=== PATIENT | female | born 1955 | race Caucasian/White ===

== ENCOUNTER 2022-06-21 13:08 | Emergency (ER) | payer OTHER, SELFPAY ==
[2022-06-21 13:28] VITALS: BP 140/82; PULSE 88; RESP 15; TEMP 37.3; O2SAT 98; BMI 20.3
--- NOTE | 2022-06-21 14:20 | PC.NURSE ---
pt picked up a towel last night and felt a slight bite and threw the towel down, she then noticed a bat in the towel. she states she cleaned her finger with alcohol and perioxide, she did feel some tingling and burning when applied but can not see any visible wound. her MD and school services officer friend advised her to be checked by ER.
[2022-06-21] MEDS: RABIES VACCINE (RABAVERT) 2.5 UNITS SYRINGE IM (15:49)
[2022-06-21] MEDS: RABIES IMMUNE GLOBULIN 300 UNIT/ML 1mL VIAL 1179 UNIT IM (15:50)
[2022-06-21] MEDS: TET,DIPH,PERTUSS(ACELL),VAC/PF 0.5 ML SYRINGE IM (16:20)
--- NOTE | 2022-06-21 16:31 | ED.ANIMALBIT ---
HPI - Animal Bite <Lei Roa PA-C - Last Filed: 06/27/22 13:41> General Chief Complaint: Animal Bite Stated Complaint: bat bite, last night Time Seen by Provider: 06/21/22 14:51 Source: patient Mode of arrival: Ambulatory History of Present Illness HPI narrative: 67-year-old female with no reported past medical history presents to the ED status post a bat bite sustained yesterday. Patient was reaching into her clothes washer, when she felt a bite on her left middle finger, saw a bat. Patient wrapped the bat in 8 fall and took the bat outside. The bat was not captured. Patient denies fevers, chills, drooling, excessive salivation, trouble swallowing, paralysis, seizures. Related Data Allergies Allergy/AdvReac Type Severity Reaction Status Date / Time Sulfa (Sulfonamide Allergy Verified 06/21/22 13:28 Antibiotics) Review of Systems <Lei Roa PA-C - Last Filed: 06/27/22 13:41> Review of Systems ROS Unobtainable: All systems reviewed & are unremarkable except as noted in HPI and below Constitutional Constitutional: Denies chills, Denies fatigue, Denies fever(s), Denies frequent falls, Denies lethargy and Denies weakness Eyes Eyes: Denies change in vision, Denies eye discharge, Denies irritation and Denies loss of vision ENT Ears, Nose, Mouth, and Throat: Denies change in voice, Denies dizziness, Denies neck pain, Denies sore throat and Denies throat swelling Cardiovascular Cardiovascular: Denies chest pain, Denies irregular heart rhythm, Denies lightheadedness, Denies palpitations, Denies dyspnea, Denies dyspnea on exertion and Denies orthopnea Respiratory Respiratory: Denies cough, Denies dyspnea, Denies dyspnea on exertion and Denies wheezing Gastrointestinal Gastrointestinal: Denies abdominal pain, Denies change in bowel habits, Denies diarrhea, Denies nausea and Denies vomiting Genitourinary Genitourinary: Denies hematuria, Denies flank pain, Denies urinary incontinence and Denies urinary urgency Musculoskeletal Musculoskeletal: Denies back pain, Denies muscle weakness, Denies neck pain, Denies numbness and Denies tingling Integumentary/Breasts Skin/Breast: Denies pruritus, Denies erythema, Denies rash and Denies wounds Comments: Bat bite on left middle finger Neurologic Neurologic: Denies behavioral changes, Denies confusion, Denies dizziness, Denies frequent falls, Denies loss of vision, Denies numbness, Denies tingling and Denies weakness Psychiatric Psychiatric: Denies anxiety, Denies behavioral changes, Denies confusion, Denies depression, Denies homicidal ideation and Denies suicidal ideation Endocrine Endocrine: Denies fatigue, Denies flushing and Denies palpitations Hematologic/Lymphatic Hematologic/Lymphatic: Denies easy bruising Allergic/Immunologic Allergic/Immunologic: Denies urticaria, Denies throat swelling and Denies wheezing Patient History <Lei Roa PA-C - Last Filed: 06/27/22 13:41> Social History Smoking Status: Unknown if ever smoked Smoking Status: Unknown if ever smoked alcohol intake frequency: 0-2 drinks per day Substance Use Type: does not use Exam <Lei Roa PA-C - Last Filed: 06/27/22 13:41> Narrative Exam Narrative: Const General:?cooperative, healthy appearing and comfortable [facility] Head:?normal to inspection Ears:?hearing grossly normal bilaterally Nose:?external nose normal Face and sinus:?normal facial exam and sinuses nontender Mouth:?oral mucosae normal; no drooling, trismus Throat:?posterior oropharynx normal Eyes General:?appearance normal, both eyes and all related structures Neck Neck:?normal visual inspection and no lymphadenopathy noted Resp Effort & Inspection:?normal respiratory effort Auscultation:?clear to auscultation bilaterally Cardio Rate:?regular rate Rhythm:?regular rhythm Integumentary No redness, no bite germaine visible on left middle finger. Finger is not tender to palpation. There is some some mild swelling of the proximal phalange of the left middle finger. There is full range of motion of all fingers and hand. Neuro General:?patient alert, patient awake and patient oriented x3; PERRLA, strength and sensation intact, range of motion intact. Gait normal. Initial Vital Signs Initial Vital Signs: Vital Signs Temperature 99.2 F 06/21/22 13:28 Pulse Rate 88 06/21/22 13:28 Respiratory Rate 15 06/21/22 13:28 Blood Pressure 140/82 06/21/22 13:28 Pulse Oximetry 98 06/21/22 13:28 Oxygen Delivery Method 06/21/22 13:28 <Naomy Goldsmith DO - Last Filed: 06/28/22 07:43> Initial Vital Signs Initial Vital Signs: Vital Signs Temperature 99.2 F 06/21/22 13:28 Pulse Rate 88 06/21/22 13:28 Respiratory Rate 15 06/21/22 13:28 Blood Pressure 140/82 06/21/22 13:28 Pulse Oximetry 98 06/21/22 13:28 Oxygen Delivery Method 06/21/22 13:28 Course <Lei Roa PA-C - Last Filed: 06/27/22 13:41> Orders Ordered: Discontinued Medications Diphtheria/Tetanus/Acell Pertussis (Tet,Diph,Pertuss(Acell),Vac/Pf 0.5 Ml Syringe) 0.5 ml IM .ONCE ONE Stop: 06/21/22 16:06 Last Admin: 06/21/22 16:20 Dose: 0.5 ml Documented By: KELLY Rabies Immune Globulin (Rabies Immune Globulin 300 Unit/Ml 1ml Vial) 1,179 unit 20 unit/kg (1179 unit) IM NOW ONE Stop: 06/21/22 15:26 Last Admin: 06/21/22 15:50 Dose: 1,179 unit Documented By: NR Rabies Vaccine (Rabies Vaccine (Rabavert) 2.5 Units Syringe) 2.5 units IM .ONCE ONE Stop: 06/21/22 15:26 Last Admin: 06/21/22 15:49 Dose: 2.5 units Documented By: NR Vital Signs Vital signs: Vital Signs - 8 hr 06/21/22 13:28 Temperature 99.2 F Pulse Rate 88 Respiratory Rate 15 Blood Pressure 140/82 Pulse Oximetry 98 Oxygen Delivery Method Room Air <Naomy Goldsmith DO - Last Filed: 06/28/22 07:43> Orders Ordered: Discontinued Medications Diphtheria/Tetanus/Acell Pertussis (Tet,Diph,Pertuss(Acell),Vac/Pf 0.5 Ml Syringe) 0.5 ml IM .ONCE ONE Stop: 06/21/22 16:06 Last Admin: 06/21/22 16:20 Dose: 0.5 ml Documented By: KELLY Rabies Immune Globulin (Rabies Immune Globulin 300 Unit/Ml 1ml Vial) 1,179 unit 20 unit/kg (1179 unit) IM NOW ONE Stop: 06/21/22 15:26 Last Admin: 06/21/22 15:50 Dose: 1,179 unit Documented By: KELLY Rabies Vaccine (Rabies Vaccine (Rabavert) 2.5 Units Syringe) 2.5 units IM .ONCE ONE Stop: 06/21/22 15:26 Last Admin: 06/21/22 15:49 Dose: 2.5 units Documented By: KELLY Vital Signs Vital signs: Vital Signs - 8 hr 06/21/22 13:28 Temperature 99.2 F Pulse Rate 88 Respiratory Rate 15 Blood Pressure 140/82 Pulse Oximetry 98 Oxygen Delivery Method Room Air MDM - Animal Bite <Lei Roa PA-C - Last Filed: 06/27/22 13:41> MDM Narrative Medical decision making narrative: 67-year-old female with no reported past medical history presents to the ED status post a bat bite sustained yesterday. Given physical exam and history, patient possibly suffered a bat bite, since the back was visualized and she felt a pinprick. Given the concern for rabies infection, rabies and tetanus prophylaxis discussed with patient. Patient agrees to go ahead with prophylaxis. Patient administered the rabies HRIG, 1st dose of the rabies vaccine, Tdap. The date of the bat bite is marked as days 0 which was yesterday. Based on that the next doses would be on 06/23/2022, 06/27/2022, 07/04/2022. The schedule was discussed with patient. Patient agrees to follow the schedule. Patient will be traveling to [place], and will get the last 2 doses in [place]. ED return precautions discussed with patient. Patient verbalized understanding. Discharge Plan Departure Patient Disposition: Home Clinical Impression: Bat bite of finger Instructions: DI for Rabies Vaccine Activity Restrictions/Additional Instructions: You were evaluated in the ED today for a bat exposure and bat bite that occurred yesterday. Given the high risk of rabies with bat exposure and a bite, you a being started on rabies prophylaxis. You were given a shot of the rabies immunoglobulin, the 1st dose of the rabies vaccine. You will need 3 more doses of the rabies vaccine to complete the series. The date of the bat bite is [place] days 0 which was yesterday. Based on that the next doses would be on 06/23/2022, 06/27/2022, 07/04/2022. Return to the ED if you experience fever, vomiting, lethargy weakness, paralysis, seizures or difficulty breathing, difficulty swallowing, excess salivation aggressive behavior. Visit Report Forms: Patient Portal/API <Naomy Goldsmith DO - Last Filed: 06/28/22 07:43> Cosign ED Attending Imtiaz Attestation: I was immediately available in the department for consultation. Documentation has been reviewed. I agree with assessment and plan.
== END 2022-06-21 16:30 | disposition home or self-care (01) ==
PROVIDERS: Emergency Provider Student in an Organized Health Care Education/Training Program
DX: S61.253A Open bite of left middle finger without damage to nail, initial encounter (principal); Z23 Encounter for immunization
CPT/HCPCS: 90375; 90471; 90675; 96372; 99283; 90715